=== PATIENT | female | born 1985 | race Caucasian/White ===

== ENCOUNTER → 2020-04-20 11:55 | Outpatient (BNVA) | payer OTHER, SELFPAY | PROVIDERS: Family Provider Nurse Practitioner Family; PCP Nurse Practitioner Family; Visit Provider Obstetrics & Gynecology | DX: N87.1 Moderate cervical dysplasia (principal); E89.41 Symptomatic postprocedural ovarian failure | CPT/HCPCS: 88175 ==

== ENCOUNTER → 2021-04-22 13:49 | Outpatient (BNVA) | payer OTHER, SELFPAY | PROVIDERS: Family Provider Nurse Practitioner Family; PCP Nurse Practitioner Family; Visit Provider Obstetrics & Gynecology | DX: Z01.419 Encounter for gynecological examination (general) (routine) without abnormal findings (principal) | CPT/HCPCS: 87624 ==

== ENCOUNTER 2022-07-26 12:02 | Outpatient (CLI) | payer OTHER, SELFPAY ==
--- NOTE | 2022-07-26 13:20 | XRR_ITS ---
PROCEDURE INFORMATION: Exam: XR Lumbosacral Spine Exam date and time: 07/26/2022 1:21 PM Age: 37 years old Clinical indication: Low back pain; Additional info: Lower back pain TECHNIQUE: Imaging protocol: Radiologic exam of the lumbosacral spine. Views: 2 or 3 views. COMPARISON: No relevant prior studies available. FINDINGS: Bones/joints: Transitional vertebral junctions with 6 non rib-bearing lumbar vertebrae. No obvious acute fracture dislocation otherwise. Well maintained disc spaces. Three views submitted. The most distal sacrum/coccyx is partially excluded on the lateral view. Soft tissues: Unremarkable. XR/XR lumbar spine 2-3V* [id number] IMPRESSION: No acute findings.
== END 2022-07-26 12:03 | disposition home or self-care (01) ==
PROVIDERS: Visit Provider Family Medicine
DX: M54.50 Low back pain, unspecified (principal); G89.29 Other chronic pain
CPT/HCPCS: 72100

== ENCOUNTER → 2023-04-16 10:24 | Outpatient (BNVA) | payer OTHER, SELFPAY | PROVIDERS: Visit Provider Physician Assistant | DX: M54.50 Low back pain, unspecified (principal) | CPT/HCPCS: 72110 ==

== ENCOUNTER 2023-04-21 12:27 | Outpatient (CLI) | payer OTHER, SELFPAY ==
--- NOTE | 2023-04-21 12:35 | MR_ITS ---
WS: [id number] MRI LUMBAR SPINE NONCONTRAST TECHNIQUE: Sagittal T1, T2 and STIR imaging. Axial T1 and T2 imaging. CLINICAL INFORMATION: BACK PAIN COMPARISON: None. FINDINGS: Mild lumbar curve. No acute compression. Disc bulging worse at L4-L5 and L5-S1. LEFT subarticular pro trusion L5-S1 impinges the traversing LEFT S1 nerve root in the subarticular recess. Disc protrusion measures 9.5 mm in AP dimension. L1-L2: Mild facet arthropathy. Spinal canal and foramen are patent. L2-L3: No significant disc bulging. Mild facet arthropathy. Spinal canal and foramen are patent. L3-L4: Mild annular bulging. Slight effacement of ventral thecal sac. Tiny RIGHT foraminal protrusion with mild RIGHT foraminal narrowing. LEFT foramen is patent. Mild facet arthropathy. L4-L5: Mild annular bulging with a shallow central disc protrusion. Impingement traversing L5 nerve r oots bilaterally. Mild central canal stenosis. Mild facet arthropathy. Mild LEFT and no significant R IGHT foraminal narrowing. Small annular fissure at this level. L5-S1: LEFT paracentral disc protrusion impinges the traversing LEFT S1 nerve root in the subarticula r recess. Slight effacement of ventral thecal sac. Mild LEFT foraminal narrowing. RIGHT foramen is pa tent. Visualized pelvic bony structures: Normal. Paravertebral soft tissues: Normal. Partially visualized cholelithiasis. Small RIGHT renal cyst. IMPRESSION: 1. Large LEFT paracentral disc protrusion L5-S1 impinges the traversing LEFT S1 nerve root in the mckoy barticular recess. Recommend correlation LEFT S1 nerve root symptoms. Disc material measures 9.5 mm i n AP dimension. 2. Mild annular bulging L4-5 with a small annular fissure and slight effacement of the ventral theca l sac. Impingement traversing LEFT greater than RIGHT L5 nerve roots in the subarticular recess. Mild LEFT foraminal narrowing. 3. Partially visualized cholelithiasis. This can be followed up with ultrasound. 4. Partially visualized disc bulging in the cervical spine on the bank consultant imaging. This could be furth er evaluated with cervical spine MRI.
== END 2023-04-21 12:28 | disposition home or self-care (01) ==
LOC: RAD 12:27
PROVIDERS: Visit Provider Physician Assistant
DX: M51.27 Other intervertebral disc displacement, lumbosacral region (principal); M51.36 Other intervertebral disc degeneration, lumbar region; M48.061 Spinal stenosis, lumbar region without neurogenic claudication
CPT/HCPCS: 72148

== ENCOUNTER → 2023-05-21 14:47 | Outpatient (BNVA) | payer OTHER, SELFPAY | PROVIDERS: PCP Family Medicine; Visit Provider Family Medicine | DX: Z01.818 Encounter for other preprocedural examination (principal) | CPT/HCPCS: 80053; 81003; 85025 ==

== ENCOUNTER 2023-06-05 05:43 | Day surgery (SDC) | payer OTHER, SELFPAY ==
[2023-06-05] VITALS (17 sets, daily range): BP systolic 114–146; BP diastolic 59–99; PULSE 60–87; RESP 12–22; TEMP 36.2–36.3; O2SAT 95–100; BMI 26.1
--- NOTE | 2023-06-05 | XR_ITS ---
WS: [id number] XR lumbar spine 2-3V* [id number] REASON FOR EXAM: LAURITA PICS FINDINGS: Surgical instrument overlying the left L5-S1 disc space. IMPRESSION: Lumbar localization and surgery as above.
--- NOTE | 2023-06-05 06:28 | W.PM.OPSUD ---
Surgery/Procedure H&P Update DATE OF PROCEDURE: June 05, 2023 DATE H&P PERFORMED: 05/21/23 H&P UPDATE INFORMATION: I have reviewed H&P completed within last 30 days, I have examined patient prior to procedure and No changes to prior documentation PREOP DIAGNOSIS: L5-S1 left-sided disc herniation with radiculopathy PLANNED PROCEDURE: Operation Date: 06/05/23 07:00 Proposed Procedures p Discectomy Lumbar Discectomy/microdiscectomy to the left at L5-S1 - Stand on the Right(Left) - Hernando Flores DO
[2023-06-05] MEDS: sodium chloride 0.9% 1,000 ML 30 ML IV (06:33)
--- NOTE | 2023-06-05 06:40 | ANES.PREANE2 ---
Pre-Anesthetic Assessment Height/Weight: Height 1.68 m Weight 73.482 kg Temp Pulse Resp BP Pulse Ox O2 Del Method 97.4 F L 73 17 146/84 96 Room Air 06/05/23 06:07 06/05/23 06:07 06/05/23 06:07 06/05/23 06:07 06/05/23 06:07 06/05/23 06:07 Preop Diagnosis: L5-S1 left-sided disc herniation with radiculopathy Operation Date: 06/05/23 07:00 Proposed Procedures p Discectomy Lumbar Discectomy/microdiscectomy to the left at L5-S1 - Stand on the Right(Left) - Hernando H Sandra, DO Familial anesthetic complications: None Was Beta Jordyn taken within 24 hours: N/A Was Clonidine taken within 24 hours: N/A Last intake: Intake Last Liquid Date 06/04/23 Last Liquid Time 21:00 Last Solid Date 06/04/23 Last Solid Time 14:00 Social No alcohol and No tobacco Exam alert, oriented x 3, clear to auscultation bilaterally and regular rate & rhythm Airway Mallampati: Class I Dentition: false Metabolic Thyroid Disease Anesthetic Plan ASA status: 2 Anesthesia: General Risk of > 500 ml blood loss (7ml/kg in children): No Medications/Allergies Home Medications Medication Instructions Recorded Confirmed Last Taken Type conjugated estrogens 1.25 mg 1.25 mg PO DAILY #30 tabs 04/25/22 06/04/23 06/04/23 Rx tablet (Premarin) hydrocodone 5 mg-acetaminophen 325 1 tab PO Q4H PRN Lumbar radicular 06/01/23 06/05/23 06/05/23 Rx mg tablet pain 5 days #30 tabs Allergies Allergy/AdvReac Type Severity Reaction Status Date / Time No Known Allergies Allergy Verified 05/21/23 14:40 Current Medications Generic Name Dose Route Start Last Admin Trade Name Freq PRN Reason Stop Dose Admin Sodium Chloride 1,000 mls @ 30 mls/hr 06/05/23 06:00 06/05/23 06:33 Sodium Chloride 0.9% IV 06/06/23 05:59 30 mls/hr .Q24H KARI Administration PFSH Anesthesia Medical History Low back pain potentially associated with radiculopathy Surgical menopause, symptomatic S/p LAVH/BSO in 2016 due to endometriosis. Hypothyroidism Following Grave's disease GERD with esophagitis Migraine syndrome Anxiety and depression History of endometriosis 10/02/2015: LAVH BSO performed. Endometriosis of the pelvis found at time of surgery. 10/30/2016: Patient reports being pain-free. Surgical History History of bunionectomy (~03/2016) Left foot. Performed in [place], [place] S/P laparoscopic assisted vaginal hysterectomy (LAVH) (10/02/15) With BSO. DX: Pelvic endometriosis. Performed by Dr. Hermosillo at [facility] in [place], [place] H/O LEEP (01/20/08) Office procedure. Performed by Dr. Stanton in [place], [place]. History of bilateral tubal ligation (12/01/07) Hysteroscopic sterilization with essure. dx: desires permanent sterilization. Performed by Dr Stanton at [facility] in [place], [place]. Family History Family/Other No problems noted. Grandfather Heart disease Maternal--chf Mother No problems noted. Father Diabetes Denies family history of Colon cancer Ovarian cancer Breast cancer Hypertension Uterine cancer Thyroid disease Stroke Social History Substance/Drug Use: never Data Anesthesia Cardiac Studies: No Data to Display
[2023-06-05] MEDS: ceFAZolin 2,000 MG in sodium chloride 0.9% (plus) 50 ML 100 MG IV (07:00)
[2023-06-05] MEDS: lidocaine-epi 2% 20 mL INJ INJECTION (07:43)
--- NOTE | 2023-06-05 08:17 | P.OP_ITS ---
Operative Report Date of procedure: June 05, 2023 Pre-op diagnosis: Lumbar stenosis with L5-S1 disc herniation and radiculopathy. Post-op diagnosis: same Procedure done: L5-S1 laminectomy with partial facetectomy and discectomy Surgeon: Hernando Flores DO Estimated blood loss (mL): 5 Procedure: L5-S1 laminectomy with partial facetectomy and discectomy Patient is brought to the operative suite. After undergoing anesthesia they are placed in the prone position. All areas of impingement are well padded. Patient is then prepped and draped in the normal sterile fashion. A skin incision is made over the L5-S1 level. This is confirmed under c-arm guidance. A series of dilators are passed and the tubular retractor is docked on the L5 lamina. A bovie is used to clear the soft tissue off the lamina and the L 5/S1 facet joint. A high speed lala is then used to perform the laminec irais and take down the medial aspect of the L 5/S1 facet joint. A kerrison rongeure was then used to take down the remaining lamina and smooth the edge of the laminectomy up to the point where the ligamentum flavum attaches. Attention was then brought to the medial aspect of the facet joint. The remaining medial aspect of the superior and inferior aspect of the facet joint were taken down with the kerrison from the pedicle of L5 to S1. The facet joint had significant hypertrophy. Attention was then brought to the Ligamentum Flavum. The ligament was taken down from the lamina of L5 to s1 and out medially to the remaining facet joint. The ligament was thick. The dura was then exposed. The dura was in good repair. The L5 nerve was then traced with a curette out the L5/S1 foramen and found to be adequately decompressed. The S1 nerve was traced with a curette around the S1 pedicle. The lateral recess was opened with a kerrison helping to further decompress the S1 nerve. S1 nerve was retracted with the dura cord tractor. The disc herniation was identified small hole was made in the disc capsule and loose fragments were removed. The space was irrigated out and multiple fragme nts came out once all the fragments were free this was done multiple times a micropituitary was used to remove all his fragments. The nerve was then found to be completely decompressed. Wound is then irrigated copiously with saline and surgiflo is used to stop any bleeding. The tubular retractor is removed and the wound is closed with vicryl and monocryl suture. Glue is then used to protect the wound. A sterile dressing is then placed. Patient was then placed in the supine position and transferred to the PACU in stable condition.
[2023-06-05] MEDS: fentaNYL 50 mcg/mL INJ 2mL IVP ×2 (08:20→08:28)
[2023-06-05] MEDS: HYDROmorphone 1 mg/mL INJ 1 mL 0.5 MG IVP ×2 (08:33→08:43)
[2023-06-05] MEDS: HYDROcodone-acetaminophen 10-325 mg Tablet 1 TAB PO (09:28)
--- NOTE | 2023-06-05 09:45 | ANE.PACU2 ---
Inpatient post-anesthesia follow up: Airway intact: Yes Vital signs: Temperature 97.4 F Pulse Rate 71 Respiratory Rate 17 Blood Pressure 130/76 Pulse Oximetry 98 Oxygen Delivery Me thod Room Air Oxygen Flow Rate Fraction of Inspir ed Oxygen Hydration adequate: Yes Nausea and vomiting: No Pain level: 1 Mental status: Baseline
== END 2023-06-05 09:45 | disposition home or self-care (01) ==
PROVIDERS: PCP Family Medicine; Visit Provider Orthopaedic Surgery
PROC: (CPT 63030; principal; 2023-06-05 07:00)
DX: M48.061 Spinal stenosis, lumbar region without neurogenic claudication (principal); M51.16 Intervertebral disc disorders with radiculopathy, lumbar region; E03.9 Hypothyroidism, unspecified
CPT/HCPCS: 63030; 72100; 76000; J0131; J0690; J1100; J1170; J2371; J2704; J2710; J3010; J3490; J7030

== ENCOUNTER 2023-08-25 16:06 | Outpatient (CLI) | payer OTHER, SELFPAY | END 2023-08-25 16:07 | disposition home or self-care (01) | LOC: SPT 16:07 | PROVIDERS: PCP Family Medicine; Visit Provider Orthopaedic Surgery | DX: Z47.89 Encounter for other orthopedic aftercare (principal) | CPT/HCPCS: 97760; L0637 ==

== ENCOUNTER → 2023-10-13 10:19 | Outpatient (BNVA) | payer OTHER, SELFPAY | PROVIDERS: PCP Family Medicine; Visit Provider Orthopaedic Surgery | DX: M54.9 Dorsalgia, unspecified (principal) | CPT/HCPCS: 72100 ==

== ENCOUNTER 2024-12-12 08:27 | Emergency (ER) | payer OTHER, SELFPAY ==
--- OUTSIDE RECORDS SUMMARY | 2024-12-12 08:35 | XMS_ITS | Clinical Summary ---
Author Organization [facility] Address [address] [phone] Care Team Providers Care Mid Teacher Name Role Phone Joselyn Briggs MD Primary Care Provider [phone] Allergies No known active allergies Medications acetaminophen (TYLENOL) 500 mg tablet Take 500 mg by mouth every 6 hours as needed for Pain. Take 1-2 bid daily prn. Active ibuprofen (MOTRIN) 200 mg tablet Take 200 mg by mouth every 6 hours as needed for Pain, Mild. Take 3 tabs daily prn. Active citalopram (CeleXA) 20 mg tabletIndicatio ns:Moderate episode of recurrent major depressive disorder (CMS/HCC) Take 1 Tablet (20 mg) by mouth daily at bedtime. 90 Tablet 3 03/08/20 24 Active carbamide peroxide (DEBROX) 6.5 % DropsIndication s:Cerumen in auditory canal on examination Administer 5 Drops in both ears see administration instructions. 18 mL 5 03/08/20 24 Active propranoloL (INDERAL) 40 mg tabletIndicatio ns:Migraine with aura and without status migrainosus, not intractable Take 1 Tablet (40 mg) by mouth 2 times daily. 60 Tablet 11 04/08/20 24 Active ubrogepant (Ubrelvy) 50 mg tablet Take 1 Tablet (50 mg) by mouth 1 time daily as needed for Other (See Comment) (Migraine). May repeat once in 1 hour 10 Tablet 11 07/11/19 25 Active HYDROcodone-joe taminophen (NORCO) 5-325 mg tabletIndicatio ns:Chronic midline low back pain without sciatica Take 1 Tablet by mouth every 8 hours as needed for Pain, Moderate. Max Daily Amount: 3 Tablets 90 Tablet 10/14/19 25 Active HYDROcodone-joe taminophen (NORCO) 5-325 mg tabletIndicatio ns:Chronic midline low back pain without sciatica Take 1 Tablet by mouth every 8 hours as needed for Pain, Moderate. Max Daily Amount: 3 Tablets 90 Tablet 12/10/19 25 Active HYDROcodone-joe taminophen (NORCO) 5-325 mg tabletIndicatio ns:Chronic midline low back pain without sciatica Take 1 Tablet by mouth every 8 hours as needed for Pain, Moderate. Max Daily Amount: 3 Tablets 90 Tablet 11/12/19 25 Active Active Problems Problem Noted Date Diagnosed Date Total Hysterectomy 07/11/2024 Chronic midline low back pain without sciatica 1 Migraine with aura and witho ut status migrainosus, not intractable 03/08/2024 Moderate episode of recurrent major depressive d isorder 03/08/2024 Tobacco use 03/08/2024 Cerumen in auditory canal on examination 024 Encounters Date Type Department Care Team Description 11/30/2024 External Device Data [facility] ABSTRACTION Provider, Abstract 11/29/2024 External Device Data [facility] ABSTRACTION Provider, Abstract 11/01/2024 External Device Data [facility] ABSTRACTION Provider, Abstract 10/18/2024 External Device Data [facility] ABSTRACTION Provider, Abstract 10/11/2024 8:00 AM CDT Office Visit [address] [phone] Joselyn Briggs MD Chronic midline low back pain without sciatica (Primary Dx); Migraine with aura and without status migrainosus, not intractable; Moderate episode of recurrent major depressive disorder (CMS/HCC); Tobacco use 10/07/[address] [phone] Joselyn Briggs MD Chronic midline low back pain without sciatica 10/06/2024 External Device Data [facility] ABSTRACTION Provider, Abstract 10/05/2024 External Device Data [facility] ABSTRACTION Provider, Abstract 10/04/2024 External Device Data [facility] ABSTRACTION Provider, Abstract 09/13/2024 1:40 PM CDT Office Visit [address] [phone] Joselyn Briggs MD Bilateral lower extremity edema (Primary Dx); Tobacco use; Chronic midline low back pain without sciatica; Moderate episode of recurrent major depressive disorder (CMS/HCC) 09/12/[address] [phone] Joselyn Briggs MD Chronic midline low back pain without sciatica from Last 3 Months Family History Medical History Relation Name Comments Diabetes Father Stroke Mother Relation Name Status Comments Brother Alive Daughter Alive Father Alive Mother Son Alive Social History Tobacco Use Types Packs/Day Years Used Date Smoking Tobacco: Every Day Cigarettes 0.5 15.8 Started: 03/08/2009 Tobacco Cessation:Ready to Q uit: Yes; Counseling Given: Yes Alcohol Use Standard Drinks/Week Comments Not Currently 0 (1 standard drink = 0.6 oz pur e alcohol) Comments No Sex and Gender Information Value Date Recorded Sex Assigned at Not on file 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 Gender Identity Not on file Sexual Orientation Not on file Last Filed Vital Signs Vital Sign Reading Time Taken Comments Blood Pressure 120/82 10/11/2024 8:02 AM CDT Pulse 103 10/11/2024 8:02 AM CDT Temperature 36.6 C (97.8 F) 10/11/2024 8:02 AM CDT Respiratory Rate 18 10/11/2024 8:02 AM CDT Oxygen Saturation 96% 10/11/2024 8:02 AM CDT Inhaled Oxygen Concentration - - Weight 65.9 kg (145 lb 3.2 oz) 10/11/2024 8:02 A M CDT Height 167.6 cm (5' 6 ) 10/11/2024 8:02 AM CDT Body Mass Index 23.44 10/11/2024 8:02 AM CDT Plan of Treatment Upcoming Encounters Date Type Department Care Team (Late st Contact Info) Description 01/02/2025 8:40 AM CDT Office Visit [address] [phone] Joselyn Briggs MD [address] [phone] Health Maintenance Due Date Last Done Comments DTAP/TDAP/TD VACCINES (6 - Tdap) 02/20/1998 02/19/1998, 04/24/1988, 04/28/1985, Additional history exists HPV VACCINES (1 - 3-dose series) 07/17/1998 BREAST CANCER SCREENING 2023 Preventative Visit- Commercial 05/18/2024 INFLUENZA VACCINE (#1) 2024 03/08/2024 HEPATITIS B VACCINES Completed 02/24/1996, 08/04/1995, 07/03/1995 [facility] Care Teams Mid Teacher Relationship Specialty Start Date End Date Joselyn Briggs MD [address] [place] [phone] PCP - General Family Practice 03/08/24
[2024-12-12 08:39] VITALS: BP 142/92; PULSE 103; PULSE 116; RESP 16; TEMP 36.1; TEMP 36.4; O2SAT 98; BMI 20.9
[2024-12-12] MEDS: orphenadrine 30 mg/mL Inj 2 mL 60 MG IM (08:58)
[2024-12-12] MEDS: methylPREDNISolone sod succ 125 mg/2 mL INJ IM (08:58)
[2024-12-12] MEDS: morphine 4 mg/mL SDV 1 mL IM ×2 (10:04→10:58)
--- NOTE | 2024-12-12 10:04 | ED_ITS ---
HPI - Back Pain/Injury General: Chief Complaint: Back Pain/Injury Stated Complaint: back pain Time Seen by Provider: 12/12/24 08:42 History of Present Illness: 39-year-old female presents emergency ro om with complaint of low back pain progressively worsening over the last 4 days no precipitating incident. Patient has history of chronic back problems and had L5-S1 laminectomy with partial facetectomy and discectomy was done in May 2023. She is not having any radicular pain at this time no difficulty with fecal incontinence or urinary retention. Associated symptoms: Deny abdominal pain, chills, dysuria, fever(s) or urinary urgency Related Data Home Medications ?Medication ?Instructions ?Recorded ?Confirmed aspirin-caffeine 500 mg-32.5 mg 1 tab PO QID PRN Pain 12/12/24 12/12/24 tablet (Back and Body Pain Reliever) ubrogepant 50 mg tablet (Ubrelvy) See Rx Instructions .Route .COMPLEX 12/12/24 12/12/24 Previous Rx's ?Medication ?Instructions ?Recorded LSO back brace #1 ea 08/25/23 hydrocodone 5 mg-acetaminophen 325 1 tab PO Q8H PRN Lin mbar radicular 02/02/24 mg tablet pain 30 days #90 tabs diclofenac sodium 75 mg 75 mg PO Q12H PRN pain #20 t abs 12/12/24 tablet,delayed release prednisone 20 mg tablet 20 mg PO TID #15 tabs tizanidine 4 mg tablet 4 mg PO Q6H PRN muscle spast icity 12/12/24 #20 tabs Allergies Allergy/AdvReac Type Severity Reaction Status Date / Time No Known Allergies Allergy Verified 02/29/24 13:07 Review of Systems Const: Denies: fever(s) or chills Card: Denies: chest pain Resp: Denies: dyspnea GI: Denies: abdominal pain : Denies: dysuria, urinary frequency or urinary urgency Musc: Reports: back pain; Denies: neck pain Skin/Breast: Denies: rash PFSH ED PFSH: Medical History Low back pain potentially associated with radiculopathy Surgical menopause, symptomatic S/p LAVH/BSO in 2016 due to endometriosis. Hypothyroidism Following Grave's disease GERD with esophagitis Migraine syndrome Anxiety and depression History of endometriosis 10/02/2015: LAVH BSO performed. Endometriosis of the pelvis found at time of surgery. 10/30/2016: Patient reports being pain-free. Surgical History History of bunionectomy (~03/2016) Left foot. Performed in [place], [place] S/P laparoscopic assisted vaginal hysterectomy (LAVH) (10/02/15) With BSO. DX: Pelvic endometriosis. Performed by Dr. Hermosillo at [facility] in [place], [place] H/O LEEP (01/20/08) Office procedure. Performed by Dr. Stanton in [place], [place] History of bilateral tubal ligation (12/01/07) Hysteroscopic sterilization with essure. dx: desires permanent sterilization. Performed by Dr Stanton at [facility] in [place], [place]. Family History Family/Other No problems noted. Grandfather Heart disease Maternal--chf Mother No problems noted. Father Diabetes Denies family history of Colon cancer Ovarian cancer Breast cancer Hypertension Uterine cancer Thyroid disease Stroke Social History Smoking and tobacco/nicotine status: current every day tobacco/nicotine user Substance/Drug Use: never Physical Exam Const: COMMON NORMALS: no acute distress GENERAL APPEARANCE: cooperative and comfortable ORIENTATION/CONSCIOUSNESS: Yes awake, Yes oriented to person, Yes oriented to place and Yes oriented to time HENMT: COMMON NORMALS: normocephalic, atraumatic and hearing grossly normal bilaterally HEAD & SCALP: normocephalic and atraumatic Resp: COMMON NORMALS: normal respiratory effort, No retractions, No use of accessory muscles and clear to auscultation bilaterally AUSCULTATION: clear to auscultation bilaterally Cardio: COMMON NORMALS: regular rate, regular rhythm and No murmurs present (Cardio) RATE: regular rate RHYTHM: regular rhythm GI: COMMON NORMALS: Soft to palpation and No hepatosplenomegaly present AUSCULTATION: Yes normoactive bowel sounds PALPATION: Yes Soft to palpation, No Tenderness to palpation present (GI), No Guarding due to palpation present (GI) and Yes No hepatosplenomegaly present Extremity: COMMON NORMALS: normal to inspection, capillary refill normal, no clubbing, cyanosis or edema, no calf tenderness and no pedal edema OTHER: Dorsal and plantarflexion at the ankle is 5 out of 5 sensation lower extremities normal neurovascularly intact straight leg raising is negative. Patellar tendon +2/4 bilaterally Neuro: SENSORIUM/ORIENTATION: Yes oriented to person, Yes oriented to place and Yes oriented to time Skin: COMMON NORMALS: no rashes or lesions noted GENERAL SKIN EXAM: no rashes or lesions noted Course Vital Signs: Vital signs: Vital Signs Temperature 97.5 F L 12/12/24 08:39 Pulse Rate 85 12/12/24 11:15 Respiratory Rate 18 12/12/24 10:58 Blood Pressure 136/72 12/12/24 11:15 Pulse Oximetry 97 12/12/24 11:15 Oxygen Delivery Me thod Room Air 12/12/24 10:05 MDM - Back Pain/Injury Medical Decision Making Pain improved with medications given she has no red flag symptoms at this time. Will discharge her home with pain medications additionally gave her tizanidine steroid taper and muscle relaxers follow-up with primary care if not improving may need advanced imaging Medical Records I reviewed the patient's medical records. No radiology studies performed this visit Discharge Plan Discharge Patient Disposition: Home Clinical Impression: Back pain, Status post lumbar laminectomy Condition: Stable Prescriptions: New tizanidine 4 mg tablet 4 mg PO Q6H PRN (Reason: muscle spasticity) Qty: 20 0RF Rx Instructions: do not exceed 3 doses per 24 hrs prednisone 20 mg tablet 20 mg PO TID Qty: 15 0RF Rx Instructions: 1 p.o. 3 times daily x3 days, 1 p.o. twice daily x2 days, 1 p.o. daily x2 days diclofenac sodium 75 mg tablet,delayed release (DR/EC) 75 mg PO Q12H PRN (Reason: pain) Qty: 20 0RF No Action (DME) LSO back brace See Rx Instructions .Route .MEDSUPPLY Qty: 1 0RF Rx Instructions: As directed hydrocodone-acetaminophen 5-325 mg tablet 1 tab PO Q8H PRN (Reason: Lumbar radicular pain ) 30 Days Qty: 90 0RF Back and Body Pain Reliever 500-32.5 mg Tablet 1 tab PO QID PRN (Reason: Pain) Ubrelvy 50 mg tablet See Rx Instructions .ROUTE .COMPLEX Rx Instructions: TAKE ONE TABLET BY MOUTH ONE TIME DAILY NEEDED FOR MIGRAINE. MAY REPEAT ONCE IN ONE HOUR Discharge Orders: Discharge ED (Routine); Ordered 12/12/24 Ordered By: Michael Krishnan Patient Instructions: Opioid Safety, Pain Management, Patient Portal & Sanju Instructions Activity Restrictions/Additional Instructions: Thank you for choosing [facility] for your healthcare needs today. It is very important that you follow up as instructed or that you return to the Em ergency Department should you have concerns or if your condition changes or worsens in any way. Follow-up with your primary care doctor Stand Alone Forms: Work/School Release Print Language: Thai Coding Level of Care Code ED Eeg Technician for Isrrael Zhou
[2024-12-12 10:05] VITALS: BP 125/90; PULSE 106; O2SAT 97
[2024-12-12 10:58] VITALS: RESP 18
[2024-12-12 11:15] VITALS: BP 136/72; PULSE 85; O2SAT 97
== END 2024-12-12 11:05 | disposition home or self-care (01) ==
PROVIDERS: Emergency Provider Family Medicine
DX: M54.9 Dorsalgia, unspecified (principal); Z98.890 Other specified postprocedural states; Z72.0 Tobacco use
CPT/HCPCS: 96372; 99284; J1885; J2270; J2360; J2919